=== PATIENT | female | born 1980 | race Caucasian/White ===

== ENCOUNTER → 2023-05-25 11:30 | Outpatient (BNV) | payer OTHER, SELFPAY | PROVIDERS: Visit Provider Psychiatry & Neurology Psychiatry | DX: F31.32 Bipolar disorder, current episode depressed, moderate (principal) | CPT/HCPCS: 99204 ==

== ENCOUNTER 2023-06-01 11:00 | Outpatient (RCR) | payer OTHER, SELFPAY ==
[2023-05-24 11:45] VITALS: BMI 33.2
[2023-05-24 12:32] VITALS: BP 154/90; PULSE 68; TEMP 36.9
--- NOTE | 2023-05-24 12:32 | PC.ADMIT ---
Patient is a 43 year old female who was referred to [facility] by [facility] [employer] d/t increased sxs of depression with passive SI, severe anxiety with panic attacks. Feeling overwhelmed and frustrated regarding medical issues. She reports L sided weakness and blurred vision in her L eye. She reports having a medial work up for possible dx of MS. She has an MRI appointment 06/03/23 and an eye appointment next month. In addition, she moved from [place] where her family lives to [place] 2 years ago for services for her son who is disabled. Patient is alert and oriented x4. Calm and cooperative. Presented with depressed mood and anxious affect. She stated she is struggling with a lot of anxiety. Has difficulty remembering things. She reports feelings of hopelessness and passive SI stating, what's the point of living but I don't have any plans . When asked if she started to have plans of intent who could she contact she stated, I have a [employer] and I would tell her . I gave Cait a copy of her safety plan if needed and I reviewed this with her. Medications reconciled with patient and patient's pharmacy. She reports medication changes made by her outpatient prescriber including increase in Prazosin to 3 mg at night. Awaiting call back from prescriber to reconcile medications.
--- NOTE | 2023-05-26 08:37 | PC.NURSE ---
Kenny was scheduled to see Dr Vasquez however she is not able to come to the program today as she has a meeting with her son's school today.
--- NOTE | 2023-05-26 10:13 | HO.PHP ---
The clients case was opened in treatment team
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
--- NOTE | 2023-05-31 11:09 | HO.PHP ---
I left a message with the clients therapist Leola Marie [facility] re client participation in PHP .
--- NOTE | 2023-06-05 10:00 | HO.PHP ---
Cait called out because she is physically ill with COVID. She states that her son is also still sick. We discussed staying out until she feels better and tests negative . She can then call and we will get her an intake to restart the program. She states that she is safe and will call when she is feeling better.
--- NOTE | 2023-06-07 08:15 | HO.PHP ---
I called Leola Marie [facility] to inform her of the clients discharge from PHP
== END 2023-06-01 23:59 | disposition home or self-care (01) ==
LOC: HO.PHPA 11:00
PROVIDERS: Visit Provider Psychiatry & Neurology Psychiatry
DX: F31.9 Bipolar disorder, unspecified (principal); Z79.899 Other long term (current) drug therapy
CPT/HCPCS: 90791; 90853